=== PATIENT | female | born 1970 | race Caucasian/White ===

== ENCOUNTER 2018-11-07 05:36 | Outpatient (CLI) | payer OTHER ==
[2018-11-07 15:48] LABS: #Eosinphils 0.1 thou/uL (0.0-0.7); #Lymphocytes 2.4 thou/uL (1.20-3.40); #Monocytes 0.5 thou/uL (0.11-0.59); #Neutrophils 4.8 thou/uL (1.40-6.50); %Basophils 0.3 % (0.0-1.0); %Eosinophils 0.8 % (0.0-10.0); %Neutrophils 61.9 % (42.0-75.0); Hemoglobin 13.3 g/dL (12.0-16.0); Mean Corpuscular HGB CONC 34.6 g/dL (32.0-36.0); Mean Corpuscular Hemoglobin 34.5 pg (27.0-31.0); Mean Corpuscular Volume 99.7 fL (78.0-98.0); Mean Platelet Volume 7.9 fL (7.4-10.4); Platelet Count 216 thou/uL (130-400); Red Blood Cell (RBC) Count 3.84 mill/uL (4.20-5.40); White Blood Cell (WBC) Count 7.8 thou/uL (4.8-10.8)
[2018-11-07 16:09] LABS: Anion Gap 13 mmol/L (10-20); BUN (Urea Nitrogen) 17 mg/dL (7.0-18.7); Calc. Creatinine Clearance 0 mL/min (70-130); Calcium 9.5 mg/dL (7.8-10.44); Carbon Dioxide 24 mmol/L (22-29); Chloride 106 mmol/L (98-107); Estimated GFR-MDRD 81; Glucose 110 mg/dL (70-105); Potassium 3.8 mmol/L (3.5-5.1); Sodium 139 mmol/L (136-145)
== END 2018-11-07 05:37 | disposition home or self-care (01) ==
LOC: LABBT 05:36
PROVIDERS: ATTEND Orthopaedic Surgery
DX: Z01.812 Encounter for preprocedural laboratory examination (principal); S46.119A Strain of muscle, fascia and tendon of long head of biceps, unspecified arm, initial encounter
CPT/HCPCS: 80048; 85025

== ENCOUNTER 2018-11-14 05:57 | Day surgery (SDC) | payer OTHER ==
[2018-11-07 14:59] VITALS: BMI 22.6
[2018-11-14] MEDS ORDERED: Fentanyl 100 MCG/2 ML VIAL ONE (06:55)
[2018-11-14] MEDS ORDERED: Midazolam HCl 2 mg/2 ml Vial ONE (06:55)
[2018-11-14] MEDS ORDERED: traMADol HCl 50 MG TAB PO PRN ×2 (07:58)
[2018-11-14] MEDS ORDERED: Promethazine HCl 25 MG/ML VIAL IM PRN (07:58)
[2018-11-14] MEDS ORDERED: Ropivacaine 0.2% 550 ML 550 ML NERVE BLCK SCH (07:58)
[2018-11-14] MEDS ORDERED: Zolpidem Tartrate 5 MG TAB PO PRN (07:58)
[2018-11-14] MEDS ORDERED: Ondansetron PF 4 MG/2 ML Vial IVP PRN (07:58)
[2018-11-14] MEDS ORDERED: HYDROcodone/Acetaminophen 7.5/325 mg Tablet PO PRN ×2 (07:59)
[2018-11-14] MEDS ORDERED: Promethazine HCl 25 MG/ML VIAL ONE (09:41)
--- NOTE | 2018-11-14 12:35 | OP ---
DATE OF PROCEDURE: 11/14/2018 PREOPERATIVE DIAGNOSES: 1. Biceps tendon dislocation. 2. Acromioclavicular joint arthritis. POSTOPERATIVE DIAGNOSES: 1. Biceps tendon dislocation. 2. Acromioclavicular joint arthritis. PROCEDURES PERFORMED: Right shoulder arthroscopic subacromial decompression, arthroscopic distal clavicle resection, and arthroscopic biceps tenodesis. WEBSITE PROJECT MANAGER: Sukhwinder Barraza PA-C ESTIMATED BLOOD LOSS: Minimal. SPECIMENS: None. DRAINS: None. COMPLICATIONS: None. DESCRIPTION OF PROCEDURE: The patient was taken to the operating room, where general anesthesia was induced. The patient was placed in left lateral decubitus position. Right arm was prepped and draped in sterile fashion. A 15 pounds of traction applied. The scope was placed in the glenohumeral joint. There was no arthritis of the joint. There did not appear to be frozen shoulder situation able to withdraw the scope through. There was no rotator cuff tear. The biceps tendon was dislocated from the groove. The foramen for the biceps tendon was empty. The biceps tendon was subluxated anteriorly and stuck to rotator cuff. I tagged the biceps and detached it from the labrum. Scope was placed in the subacromial bursa. CA ligament was taken down and the anterior-inferior acromioplasty was performed. I removed the distal clavicle just I can move an 8 mm shaver freely between the clavicle and the acromion. The biceps tendon was delivered laterally. I drilled, measured, and prepared it using a Krackow sutures using Fiber[employer]. I drilled a 7 mm tunnel of the proximal humerus to put the tendon into the tunnel. I then placed a 7-mm screw in the tunnel with a good interference fit. The sutures were tied over the screw. Shoulder was then drained. Portals were closed with nylon sutures. Sterile dressings were applied. Job ID: [id number]
== END 2018-11-14 12:40 | disposition home or self-care (01) ==
LOC: SDC 05:57
PROVIDERS: ATTEND Orthopaedic Surgery
PROC: 0LS14ZZ Reposition Right Shoulder Tendon, Percutaneous Endoscopic Approach (ICD-10-PCS; principal; 2018-11-14)
PROC: 0PB94ZZ Excision of Right Clavicle, Percutaneous Endoscopic Approach (ICD-10-PCS; principal; 2018-11-14)
PROC: 0RNJ4ZZ Release Right Shoulder Joint, Percutaneous Endoscopic Approach (ICD-10-PCS; principal; 2018-11-14)
DX: S46.111A Strain of muscle, fascia and tendon of long head of biceps, right arm, initial encounter (principal); M19.011 Primary osteoarthritis, right shoulder; K21.9 Gastro-esophageal reflux disease without esophagitis; J45.909 Unspecified asthma, uncomplicated; Z79.899 Other long term (current) drug therapy; Z88.1 Allergy status to other antibiotic agents
CPT/HCPCS: A4306; C1713; J2250; J2550; J2795; J3010

== ENCOUNTER 2020-11-22 07:46 | Outpatient (CLI) | payer OTHER | END 2020-11-22 07:47 | disposition home or self-care (01) | LOC: BICMRI 07:46 | PROVIDERS: ATTEND Orthopaedic Surgery | DX: M75.102 Unspecified rotator cuff tear or rupture of left shoulder, not specified as traumatic (principal); M19.012 Primary osteoarthritis, left shoulder; R60.0 Localized edema; M25.812 Other specified joint disorders, left shoulder ==

== ENCOUNTER 2020-12-13 14:40 | Outpatient (CLI) | payer OTHER ==
[2020-12-13 16:15] LABS: Anion Gap 12 mmol/L (10-20); BUN (Urea Nitrogen) 16 mg/dL (7.0-18.7); Calc. Creatinine Clearance 0 mL/min (70-130); Calcium 9.3 mg/dL (7.8-10.44); Carbon Dioxide 28 mmol/L (22-29); Chloride 104 mmol/L (98-107); Glucose 93 mg/dL (70-105); Potassium 4.3 mmol/L (3.5-5.1); Sodium 140 mmol/L (136-145)
[2020-12-13 16:59] LABS: #Eosinphils 0.1 10x3/uL (0.0-0.5); #Monocytes 0.5 10x3/uL (0.0-1.1); #Neutrophils 6.3 10x3/uL (1.5-8.4); %Basophils 0.2 % (0.0-2.0); %Eosinophils 0.9 % (0.0-6.0); %Lymphocytes 27.1 % (18.0-47.0); %Monocytes 5.5 % (0.0-10.0); Hemoglobin 12.8 g/dL (12.0-15.5); Mean Corpuscular HGB CONC 33.3 g/dL (32.0-36.0); Mean Corpuscular Hemoglobin 32.8 pg (27.0-33.0); Mean Corpuscular Volume 98.5 fl (81.6-98.3); Mean Platelet Volume 11.7 fl (7.4-10.4); Platelet Count 238 10x3/uL (150-450); RBC Distribution Width 11.7 % (11.5-14.5); White Blood Cell (WBC) Count 9.6 10x3/uL (3.5-10.5)
[2020-12-14 06:59] LABS: SARS-CoV-2 PCR by NAA Not Detected (NotDetected)
== END 2020-12-13 14:41 | disposition home or self-care (01) ==
LOC: LABBT 14:40
PROVIDERS: ATTEND Orthopaedic Surgery
DX: Z01.812 Encounter for preprocedural laboratory examination (principal); M75.102 Unspecified rotator cuff tear or rupture of left shoulder, not specified as traumatic; M19.012 Primary osteoarthritis, left shoulder; Z20.822 Contact with and (suspected) exposure to COVID-19
CPT/HCPCS: 80048; 85025; 87635; U0003; U0005

== ENCOUNTER 2020-12-16 06:57 | Day surgery (SDC) | payer OTHER ==
[2020-12-14 12:30] VITALS: BMI 22.6
[2020-12-16] MEDS ORDERED: Famotidine/PF 20 mg/2ml Vial ONE (07:59)
[2020-12-16] MEDS ORDERED: Scopolamine 1.5 mg/72 hour Patch ONE (08:00)
[2020-12-16] MEDS ORDERED: Ondansetron PF 4 MG/2 ML Vial ONE ×2 (08:00→09:52)
[2020-12-16] MEDS ORDERED: Midazolam HCl 2 mg/2 ml Vial ONE (08:25)
[2020-12-16] MEDS ORDERED: Fentanyl 100 MCG/2 ML VIAL ONE ×2 (08:25→09:06)
[2020-12-16] MEDS ORDERED: Bupivacaine PF 0.5% 30 ML VIAL ONE ×2 (08:25→09:52)
[2020-12-16] MEDS ORDERED: Sodium Chloride 0.9% 10 ML ONE (08:26)
[2020-12-16] MEDS ORDERED: PROPOFOL 200 MG/20 ML VIAL ONE (09:52)
[2020-12-16] MEDS ORDERED: Glycopyrrolate 0.2 MG/ML 5 ML SYRINGE ONE (09:52)
[2020-12-16] MEDS ORDERED: Ketorolac Tromethamine 30 MG/ML VIAL ONE (09:52)
[2020-12-16] MEDS ORDERED: Dexamethasone 20 MG/5 ML VIAL ONE (09:52)
[2020-12-16] MEDS ORDERED: Lidocaine 1% PF 5 ML VIAL ONE (09:52)
[2020-12-16] MEDS ORDERED: Rocuronium Bromide 10 MG/ML (10ML VIAL) ONE (09:52)
[2020-12-16] MEDS ORDERED: Ondansetron PF 4 MG/2 ML Vial IVP PRN (10:00)
[2020-12-16] MEDS ORDERED: Promethazine HCl 25 MG/ML VIAL IM PRN (10:00)
[2020-12-16] MEDS ORDERED: Zolpidem Tartrate 5 MG TAB PO PRN (10:00)
[2020-12-16] MEDS ORDERED: Ropivacaine 0.2% 550 ML 550 ML NERVE BLCK SCH (10:00)
[2020-12-16] MEDS ORDERED: Meperidine HCl/PF 25 MG/ML VIAL ONE (12:05)
== END 2020-12-16 14:45 | disposition home or self-care (01) ==
LOC: SDC 06:57
PROVIDERS: ATTEND Orthopaedic Surgery
PROC: 3E0T3BZ Introduction of Anesthetic Agent into Peripheral Nerves and Plexi, Percutaneous Approach (ICD-10-PCS; principal; 2020-12-16)
PROC: 0RNK4ZZ Release Left Shoulder Joint, Percutaneous Endoscopic Approach (ICD-10-PCS; principal; 2020-12-16)
PROC: 0PBB4ZZ Excision of Left Clavicle, Percutaneous Endoscopic Approach (ICD-10-PCS; principal; 2020-12-16)
DX: M75.22 Bicipital tendinitis, left shoulder (principal); M75.102 Unspecified rotator cuff tear or rupture of left shoulder, not specified as traumatic; M19.012 Primary osteoarthritis, left shoulder; M25.812 Other specified joint disorders, left shoulder; G89.18 Other acute postprocedural pain; K58.9 Irritable bowel syndrome, unspecified; Z79.899 Other long term (current) drug therapy; Z88.2 Allergy status to sulfonamides
CPT/HCPCS: 80048; 85025; 87635; A4306; C1713; J0690; J1100; J1885; J2175; J2250; J2405; J2704; J2795; J3010; S0020; S0028; U0003; U0005

== ENCOUNTER → 2023-03-22 | Day surgery (SDC) | payer BC | LOC: SDC 14:02 | PROVIDERS: ATTEND Internal Medicine Gastroenterology | DX: K21.9 Gastro-esophageal reflux disease without esophagitis (principal); Z88.1 Allergy status to other antibiotic agents | CPT/HCPCS: 91034 ==